=== PATIENT | male | born 1960 | race Caucasian/White ===

== ENCOUNTER → 2017-09-14 | Outpatient (CLI) | payer BC | LOC: COL.RAD 12:54 | DX: M16.11 Unilateral primary osteoarthritis, right hip (principal) | CPT/HCPCS: J3301; Q9967 ==

== ENCOUNTER 2018-06-25 00:59 | Emergency (ER) | payer BC ==
[~2018-06-25] VITALS: Ht 185.4 cm; Wt 125.0 kg
[2018-06-25 01:03] VITALS: TEMP 98.1
[2018-06-25 01:37] LABS: COLLECTION METHOD CLEAN CATCH
[2018-06-25 01:40] LABS: BASO # 0.1 (0.0-0.2); BASO % 0.5 % (0.0-2.0); EOS # 0.3 (0.0-0.7); EOS % 2.7 % (0-4.0); GRAN # 8.3 (1.4-6.5); GRAN % 73.6 % (42.2-75.2); HEMOGLOBIN 12.1 g/dl (13.5-18.0); LYMPH # 1.3 (1.2-3.4); LYMPH % 11.2 % (20.0-51.0); MEAN CELL VOLUME 89 fl (80.0-100.0); MEAN CORPUSCULAR HEMOGLOBIN 30 pg (27.0-31.0); MEAN CORPUSCULAR HGB CONC 34 g/dl (33.0-37.0); MONO # 1.3 (0.1-0.6); MONO % 11.6 % (1.7-9.3); PLATELET COUNT 205 K/mm3 (130-400); RED BLOOD COUNT 4.02 M/mm3 (4.20-5.60); REDCELL DISTRIBUTION WIDTH-CV 12.7 % (11.5-14.5)
[2018-06-25 01:41] LABS: HEMATOCRIT 35.9 % (42.0-52.0)
[2018-06-25 01:43] LABS: MUCOUS Present /lpf; PH 5 (5-8); SQUAMOUS EPITHELIAL None Seen /hpf; URINE APPEARANCE Clear; URINE BACTERIA None Seen /hpf; URINE BILIRUBIN Negative (NEGATIVE); URINE BLOOD 1+ (NEGATIVE); URINE COLOR Yellow; URINE GLUCOSE Negative (NEGATIVE); URINE KETONE Negative (NEGATIVE); URINE LEUKOCYTE ESTERASE Negative (NEGATIVE); URINE NITRATE Negative (NEGATIVE); URINE PROTEIN(semi-quant) Negative (NEGATIVE); URINE RBC 0-2 /hpf; URINE UROBILINOGEN Negative (NEGATIVE)
[2018-06-25] MEDS ORDERED: GLUCOPHAGE500 MG/TAB PO (01:50)
[2018-06-25] MEDS ORDERED: EFFEXOR XR75 MG/CAP (01:50)
[2018-06-25] MEDS ORDERED: MEVACOR40 MG PO (01:50)
[2018-06-25] MEDS ORDERED: PRINIVIL5 MG PO (01:50)
[2018-06-25 01:55] LABS: ALBUMIN 3.7 gm/dL (3.5-5.0); BILIRUBIN,TOTAL 0.7 mg/dL (0.0-1.0); C-REACTIVE PROTEIN 4.7 mg/dL (0.0-0.9); CALCIUM 8.8 mg/dL (8.4-10.2); CREATININE, serum 1.39 mg/dL (0.66-1.25); POTASSIUM 4.2 mmol/L (3.4-5.0); TOTAL PROTEIN 6.6 gm/dL (6.4-8.2)
[2018-06-25] MEDS ORDERED: PERCOCET 325 MG1 TA2 PO (04:16)
[2018-06-25] MEDS ORDERED: ZOFRAN ODT4 MG PO (04:16)
[2018-06-25] MEDS ORDERED: CEFTIN500 MG PO (04:16)
[2018-06-25 04:37] VITALS: BP 133/75; PULSE 68
== END 2018-06-25 04:37 | disposition home or self-care (01) ==
LOC: COL.ER 00:59
PROVIDERS: Emergency Medicine
DX: N20.1 Calculus of ureter (principal); E11.9 Type 2 diabetes mellitus without complications; Z90.49 Acquired absence of other specified parts of digestive tract; Z79.84 Long term (current) use of oral hypoglycemic drugs; Z87.442 Personal history of urinary calculi
CPT/HCPCS: J1885; J2405; J3010; J7030; Q9967

== ENCOUNTER 2018-06-27 11:52 | Day surgery (SDC) | payer BC ==
[~2018-06-27] VITALS: Ht 185.4 cm; Wt 130.5 kg
[~2018-06-27 11:52] MED LIST: CEFTIN500 MG PO; EFFEXOR XR75 MG/CAP; GLUCOPHAGE500 MG/TAB PO; MEVACOR40 MG PO; PERCOCET 325 MG1 TA2 PO; PRINIVIL5 MG PO; ZOFRAN ODT4 MG PO
[2018-06-27 13:05] VITALS: BP 146/87; PULSE 73; TEMP 99.2
[2018-06-27 15:08] VITALS: BP 138/74; PULSE 68
[2018-06-27 15:20] VITALS: TEMP 98.6
[2018-06-27 15:23] VITALS: BP 144/82; PULSE 69
[2018-06-27] MEDS ORDERED: NORCO 325 MG-51 TAB PO (15:31)
[2018-06-27] MEDS ORDERED: PYRIDIUM 100MG100 MG PO (15:32)
[2018-06-27] MEDS ORDERED: COLACE 100100 MG/CAP PO (15:32)
[2018-06-27 15:38] VITALS: BP 139/74; PULSE 65
[2018-06-27 15:53] VITALS: BP 158/78; PULSE 67
== END 2018-06-27 16:15 | disposition home or self-care (01) ==
LOC: SDCO 11:52
DX: N20.1 Calculus of ureter (principal); E11.9 Type 2 diabetes mellitus without complications; E78.5 Hyperlipidemia, unspecified; I10 Essential (primary) hypertension; E66.01 Morbid (severe) obesity due to excess calories; G47.33 Obstructive sleep apnea (adult) (pediatric); Z90.49 Acquired absence of other specified parts of digestive tract; Z79.82 Long term (current) use of aspirin; Z88.5 Allergy status to narcotic agent; Z79.84 Long term (current) use of oral hypoglycemic drugs; Z82.49 Family history of ischemic heart disease and other diseases of the circulatory system
CPT/HCPCS: C1769; C2617; J0690; J2405; J2704; J2765; J3010; J7030; Q9967

== ENCOUNTER 2018-07-10 12:45 | Outpatient (RCR) | payer BC ==
[~2018-07-10 12:45] MED LIST changes: +COLACE 100100 MG/CAP PO; +NORCO 325 MG-51 TAB PO; +PYRIDIUM 100MG100 MG PO
== END 2018-09-10 | disposition home or self-care (01) ==
LOC: WSPT
DX: H81.12 Benign paroxysmal vertigo, left ear (principal); Z79.84 Long term (current) use of oral hypoglycemic drugs; Z79.82 Long term (current) use of aspirin; Z79.899 Other long term (current) drug therapy

== ENCOUNTER 2019-06-01 09:22 | Emergency (ER) | payer BC ==
[~2019-06-01] VITALS: Ht 185.4 cm; Wt 125.0 kg
[2019-06-01 09:25] VITALS: BP 138/92; PULSE 90
[2019-06-01] MEDS ORDERED: FLEXERIL 1010 MG/TAB PO (12:14)
[2019-06-01] MEDS ORDERED: NORCO 325 MG-7.1 TAB PO (12:14)
[2019-06-01] MEDS ORDERED: MEDROL 4MG DOSPA4 MG PO (12:14)
[2019-06-01 12:30] VITALS: TEMP 98
== END 2019-06-01 12:33 | disposition home or self-care (01) ==
LOC: COL.ER 09:22
DX: M75.22 Bicipital tendinitis, left shoulder (principal); M54.12 Radiculopathy, cervical region; E11.9 Type 2 diabetes mellitus without complications; I10 Essential (primary) hypertension; Z79.84 Long term (current) use of oral hypoglycemic drugs; Z90.49 Acquired absence of other specified parts of digestive tract; Z88.5 Allergy status to narcotic agent; Z98.890 Other specified postprocedural states
CPT/HCPCS: J1885

== ENCOUNTER → 2019-10-28 | Outpatient (CLI) | payer BC ==
[~2019-10-28] MED LIST changes: +FLEXERIL 1010 MG/TAB PO; +MEDROL 4MG DOSPA4 MG PO; +NORCO 325 MG-7.1 TAB PO
== END ==
LOC: COL.RAD 09:41
DX: J32.9 Chronic sinusitis, unspecified (principal)

== ENCOUNTER → 2020-05-11 | Outpatient (CLI) | payer BC | LOC: COL.RAD | DX: M25.852 Other specified joint disorders, left hip (principal) ==

== ENCOUNTER → 2020-12-21 | Outpatient (CLI) | payer BC ==
[~2020-12-21] MED LIST changes: +ANTIVERT 25MG25 MG PO; +ASPIRIN E.C. 8181 MG PO; -EFFEXOR XR75 MG/CAP; +EFFEXOR XR75 MG/CAP PO; +REVATIO20 MG PO; +TRULICITY1.5 MG/0.5 SQ; +VOLTAREN 75 DR75 MG PO; +ZESTRIL 5MG5 MG PO; +ZOFRAN 4MG T4 MG/TAB PO
== END ==
LOC: COL.RAD 08:17
DX: M16.0 Bilateral primary osteoarthritis of hip (principal)
CPT/HCPCS: J3301; Q9967

== ENCOUNTER → 2021-03-15 | Outpatient (CLI) | payer BC | LOC: COL.RAD 07:53 | DX: M25.552 Pain in left hip (principal); G89.29 Other chronic pain | CPT/HCPCS: J3301; Q9967 ==

== ENCOUNTER 2021-04-07 11:35 | Outpatient (CLI) | payer BC ==
[~2021-04-07] VITALS: Ht 185.4 cm; Wt 118.0 kg
[2021-04-07] VITALS (7 sets, daily range): BP systolic 121–137; BP diastolic 72–90; PULSE 82–90; TEMP 97.8–98.6
[~2021-04-07 11:35] MED LIST changes: -ANTIVERT 25MG25 MG PO; -ASPIRIN E.C. 8181 MG PO; -REVATIO20 MG PO; -TRULICITY1.5 MG/0.5 SQ; -VOLTAREN 75 DR75 MG PO; -ZESTRIL 5MG5 MG PO; -ZOFRAN 4MG T4 MG/TAB PO
[2021-04-07] MEDS ORDERED: REVATIO20 MG PO (11:58)
[2021-04-07] MEDS ORDERED: VOLTAREN 75 DR75 MG PO (11:59)
[2021-04-07] MEDS ORDERED: ANTIVERT 25MG25 MG PO (11:59)
[2021-04-07] MEDS ORDERED: EFFEXOR XR75 MG/CAP PO (12:00)
[2021-04-07] MEDS ORDERED: ASPIRIN E.C. 8181 MG PO (12:00)
[2021-04-07] MEDS ORDERED: ZESTRIL 5MG5 MG PO (12:01)
[2021-04-07] MEDS ORDERED: GLUCOPHAGE500 MG/TAB PO (12:01)
[2021-04-07] MEDS ORDERED: MEVACOR40 MG PO (12:01)
[2021-04-07] MEDS ORDERED: TRULICITY1.5 MG/0.5 SQ (12:02)
[2021-04-07] MEDS ORDERED: ZOFRAN 4MG T4 MG/TAB PO (12:02)
--- NOTE | 2021-04-07 14:04 | NUR ---
INT DC'd with catheter intact. Pt tolerated infusion without issue. He is escorted out by ambulation with steady gait.
== END 2021-04-07 14:05 | disposition home or self-care (01) ==
LOC: EUO 11:35
DX: J02.9 Acute pharyngitis, unspecified (principal)
CPT/HCPCS: Q0244

== ENCOUNTER → 2021-06-24 | Outpatient (CLI) | payer BC ==
[~2021-06-24] MED LIST changes: +ANTIVERT 25MG25 MG PO; +ASPIRIN E.C. 8181 MG PO; +REVATIO20 MG PO; +TRULICITY1.5 MG/0.5 SQ; +VOLTAREN 75 DR75 MG PO; +ZESTRIL 5MG5 MG PO; +ZOFRAN 4MG T4 MG/TAB PO
== END ==
LOC: COL.RAD 08:21
DX: M16.0 Bilateral primary osteoarthritis of hip (principal)
CPT/HCPCS: J3301; Q9967

== ENCOUNTER → 2021-08-19 | Outpatient (CLI) | payer BC ==
--- NOTE | 2021-08-16 13:55 | NUR ---
LMOM WITH INSTRUCTIONS AND CALL BACK NUMBER
[~2021-08-19] VITALS: Ht 185.4 cm; Wt 123.0 kg
[2021-08-19 06:45] VITALS: BP 132/65; PULSE 90; TEMP 97.9
[2021-08-19 07:50] VITALS: BP 143/89; PULSE 83
== END ==
LOC: COL.RAD 06:40
DX: M48.02 Spinal stenosis, cervical region (principal)
CPT/HCPCS: J1100

== ENCOUNTER → 2021-10-31 | Outpatient (CLI) | payer BC | LOC: COL.RAD 08:01 | DX: M16.12 Unilateral primary osteoarthritis, left hip (principal) | CPT/HCPCS: J3301; Q9967 ==

== ENCOUNTER → 2022-01-10 | Outpatient (CLI) | payer BC | LOC: MHCPAIN 07:58 | DX: M47.812 Spondylosis without myelopathy or radiculopathy, cervical region (principal); M54.2 Cervicalgia; G44.86 Cervicogenic headache; M54.81 Occipital neuralgia | CPT/HCPCS: G0463 ==

== ENCOUNTER → 2022-02-06 | Outpatient (CLI) | payer BC | LOC: COL.RAD 07:41 | DX: M25.552 Pain in left hip (principal) | CPT/HCPCS: J3301; Q9967 ==

== ENCOUNTER 2022-11-10 05:24 | Day surgery (SDC) | payer BC ==
[~2022-11-10] VITALS: Ht 185.4 cm; Wt 119.6 kg
[~2022-11-10 05:24] MED LIST changes: +DESYREL 50MG50 MG PO; +EFFEXOR-XR150 MG PO; +FARXIGA10 PO; +MOBIC15 MG PO; +NEURONTIN600 MG/TAB PO; +RYBELSUS3 MG PO
[2022-11-10 06:19] LABS: HEMATOCRIT 37.4 % (42.0-52.0); HEMOGLOBIN 12.6 g/dl (13.5-18.0)
[2022-11-10 06:29] LABS: CALCIUM 9.5 mg/dL (8.4-10.2); CREATININE, serum 1.26 mg/dL (0.72-1.25); POTASSIUM 4.5 mmol/L (3.5-4.5)
[2022-11-10 06:44] VITALS: BP 106/67; PULSE 79; TEMP 97.4
--- NOTE | 2022-11-10 06:50 | NUR ---
DR. TORRES IN TO SPEAK WITH PT ABOUT RESCHEDULING PROCEDURE R/T ELEVATED BLOOD GLUCOSE TODAY.
[2022-11-15] MEDS ORDERED: MOTRIN 200200 MG/TAB PO (17:12)
[2022-11-15] MEDS ORDERED: ALEVE 220MG220 MG PO (17:12)
== END 2022-11-10 07:15 | disposition home or self-care (01) ==
LOC: SDCO 05:24 → EDSTATUS 07:30 → SURG 07:30 → SDCO 07:30
PROVIDERS: Nurse Anesthetist, Certified Registered
DX: N13.0 Hydronephrosis with ureteropelvic junction obstruction (principal); R59.0 Localized enlarged lymph nodes; E11.9 Type 2 diabetes mellitus without complications; Z53.8 Procedure and treatment not carried out for other reasons; Z79.84 Long term (current) use of oral hypoglycemic drugs
CPT/HCPCS: J0690; J1100; J2250; J2405; J2704; J2795; J3010; J7120

== ENCOUNTER 2023-07-31 13:46 | Outpatient (RCR) | payer BC ==
[~2023-07-31 13:46] MED LIST changes: +ALEVE 220MG220 MG PO; +MOTRIN 200200 MG/TAB PO
== END 2023-08-02 | disposition home or self-care (01) ==
LOC: WSPT
DX: H81.13 Benign paroxysmal vertigo, bilateral (principal)

== ENCOUNTER → 2023-10-26 | Outpatient (CLI) | payer BC ==
[~2023-10-26] MED LIST changes: +FLOMAX 0.40.4 MG/CAP PO; +Iohexol 300 - 10 ML VIAL IV ONE; +KERENDIA10 MG PO; +LYVISPAH5 MG PO; +NEURONTIN300 MG/CAP PO; +TRICOR145 MG PO; +TRULICITY3 MG/0.5 M SQ; +Triamcinolone 40 MG/ML 1 ML VIAL IJ ONE; +WELLBUTRIN XL150 MG PO
== END ==
LOC: COL.RAD 08:25
DX: M19.032 Primary osteoarthritis, left wrist (principal); M19.031 Primary osteoarthritis, right wrist
CPT/HCPCS: J0665; J3301; Q9967

== ENCOUNTER → 2024-01-08 | Outpatient (CLI) | payer BC ==
[~2024-01-08] MED LIST changes: -Iohexol 300 - 10 ML VIAL IV ONE; +Iohexol 300 - 100 ML VIAL IV ONE; +NS 100 ML IV SCH; -Triamcinolone 40 MG/ML 1 ML VIAL IJ ONE
== END ==
LOC: COL.RAD 06:58
DX: R59.0 Localized enlarged lymph nodes (principal); R63.4 Abnormal weight loss
CPT/HCPCS: Q9967

== ENCOUNTER → 2024-06-23 | Outpatient (CLI) | payer BC ==
[~2024-06-23] MED LIST changes: -Iohexol 300 - 100 ML VIAL IV ONE; -NS 100 ML IV SCH
== END ==
LOC: COL.RAD 09:15
DX: M25.552 Pain in left hip (principal); Z96.642 Presence of left artificial hip joint
CPT/HCPCS: A9503-JZ